=== PATIENT | female | born 1960 | race Caucasian/White ===

== ENCOUNTER 2021-02-10 09:12 | Outpatient (CLI) | payer OTHER | END 2021-02-10 09:13 | disposition home or self-care (01) | LOC: SONOGRAMA 09:12 → MAMO-SONO 09:15 | DX: M65.88 Other synovitis and tenosynovitis, other site (principal); M15.0 Primary generalized (osteo)arthritis; M65.4 Radial styloid tenosynovitis [de Quervain] ==

== ENCOUNTER 2024-09-30 13:46 | Outpatient (CLI) | payer OTHER | END 2024-09-30 13:47 | disposition home or self-care (01) | LOC: MAMO-SONO 13:46 | PROVIDERS: ATTEND Neurological Surgery | DX: M51.370 Other intervertebral disc degeneration, lumbosacral region with discogenic back pain only (principal); M51.16 Intervertebral disc disorders with radiculopathy, lumbar region; M47.24 Other spondylosis with radiculopathy, thoracic region; M47.12 Other spondylosis with myelopathy, cervical region | CPT/HCPCS: 72141; 72146 ==